=== PATIENT | female | born 1955 | race Caucasian/White ===

== ENCOUNTER 2023-05-01 11:49 | Inpatient (IN) ==
[2023-05-01] MEDS ORDERED: Lactated Ringers 1000 ml BAG 1,000 ML IV ONE ×2 (13:56→15:41)
[2023-05-01] MEDS ORDERED: Ondansetron 4 mg VIAL 2 MG/ML 2 ml VIAL IV ONE (14:04)
[2023-05-01 14:57] LABS: ABS Basophils 0.1 10^3/uL (0.0-0.1); ABS Eosinophils 0.2 10^3/uL (0.0-0.5); ABS Lymphocytes 1.8 10^3/uL (1.0-4.8); ABS Monocytes 1.3 10^3/uL (0.0-0.9); ABS Neutrophils 8.1 10^3/uL (1.5-7.6); ABS Nucleated RBC 0.02 10^3/ul; Eosinophil % 1.4 %; Hematocrit 35.6 % (35-45); Hemoglobin 11.9 g/dL (11.5-14.3); Lymphocyte % 15.8 %; Mean Corpuscular Hemoglobin 28.3 pg (27-33); Mean Corpuscular Hgb Conc 33.5 g/dL (31-36); Mean Corpuscular Volume 84.6 fL (80-97); Mean Platelet Volume 8.6 fL (7.5-11.2); Nucleated Red Blood Cells % 0.1 %/100WBC (0.0-0.8); Platelet Count 305 10^3/uL (150-450); Red Blood Count 4.21 10^6/uL (3.63-4.92); Red Cell Distribution Width 15.3 % (12-17); White Blood Count 11.5 10^3/uL (3.8-11.8)
[2023-05-01 15:18] LABS: Albumin 3.5 g/dL (3.2-5.2); Albumin/Globulin Ratio 0.8 (1-3); Calcium 9.4 mg/dL (8.6-10.3); Creatinine, Serum 2.54 mg/dL (0.51-0.95); Globulin 4.5 g/dL (2-4); Potassium 3.8 mmol/L (3.5-5.0); Total Bilirubin 0.7 mg/dL (0.2-1.0); eGFR CKD-EPI 20.4 (>60)
[2023-05-01 17:23] LABS: INR 1.28 (0.83-1.13)
[2023-05-01 17:40] LABS: Albumin 3.1 g/dL (3.2-5.2); Albumin/Globulin Ratio 0.8 (1-3); Calcium 8.6 mg/dL (8.6-10.3); Creatinine, Serum 2.4 mg/dL (0.51-0.95); Globulin 3.8 g/dL (2-4); Potassium 3.7 mmol/L (3.5-5.0); Total Bilirubin 0.6 mg/dL (0.2-1.0); Total Protein 6.9 g/dL (6.4-8.9); eGFR CKD-EPI 21.9 (>60)
[2023-05-01 18:36] LABS: Hepatitis B Surface Antigen Nonreactive (Nonreactive)
[2023-05-01 18:44] LABS: Urine Appearance Cloudy; Urine Bilirubin Negative (Negative); Urine Blood 1+ (Negative); Urine Color Yellow; Urine Glucose Negative (Negative); Urine Ketones Negative (Negative); Urine Nitrite Negative (Negative); Urine Protein Negative (Negative); Urine Specific Gravity 1.008 (1.002-1.030); Urine Urobilinogen Negative (Negative)
[2023-05-01 18:53] LABS: Hepatitis C Antibody Negative (Negative)
[2023-05-01 18:59] LABS: Urine Bacteria 3+ (Absent); Urine Red Blood Cell 1+(3-5/hpf) (Absent); Urine Squamous Epithelial Cell Present (Absent); Urine White Blood Cell 3+(>20/hpf) (Absent)
[2023-05-01 20:35] LABS: Hepatitis B Surface Ab Indeterminate (Immune)
[2023-05-01 21:39] LABS: HDL Cholesterol 10.7 mg/dL; Magnesium 1.8 mg/dL (1.9-2.7)
[2023-05-01] MEDS ORDERED: Magnesium Sulfate IV 1GM/100ML 1 GM/100 ML BAG IV ONE (22:16)
[2023-05-01] MEDS ORDERED: Potassium Chlor 20 meq TAB.ER PO ONE (22:16)
[2023-05-01 22:48] LABS: TSH Ultra Thyroid Stim Horm 3.86 mcIU/mL (0.34-5.60)
[2023-05-01] MEDS ORDERED: Ondansetron 4 mg VIAL 2 MG/ML 2 ml VIAL IV PRN (23:21)
[2023-05-01 23:42] LABS: C Reactive Protein 93.86 mg/L (<8.01)
[2023-05-01] MEDS: Enoxaparin 40 MG/0.4 ML SYR SUBCUT SCH (23:55)
[2023-05-02 02:36] LABS: Hepatitis A Ab IgM Negative (Negative)
[2023-05-02] MEDS ORDERED: Dextrose 50% Syringe 50 ml 25 GM/50 ML SYRINGE IV PUSH PRN (03:11)
[2023-05-02 06:51] LABS: Albumin 3.2 g/dL (3.2-5.2); Albumin/Globulin Ratio 0.8 (1-3); Calcium 8.8 mg/dL (8.6-10.3); Creatinine, Serum 2.54 mg/dL (0.51-0.95); Globulin 3.9 g/dL (2-4); Potassium 3.9 mmol/L (3.5-5.0); Total Bilirubin 0.5 mg/dL (0.2-1.0); Total Protein 7.1 g/dL (6.4-8.9); eGFR CKD-EPI 20.4 (>60)
[2023-05-02] MEDS: Aspirin EC 81 mg TAB.EC (enteric coated) PO SCH (09:33)
[2023-05-02] MEDS: Insulin GLARGINE 100 un/ml 10 ml VIAL SUBCUT SCH (09:34)
[2023-05-02] MEDS ORDERED: NS 0.9% 1000 ml BAG 1,000 ML IV SCH (17:15)
[2023-05-02] MEDS: Enoxaparin 40 MG/0.4 ML SYR SUBCUT SCH (23:33)
[2023-05-03 08:08] LABS: ABS Basophils 0.1 10^3/uL (0.0-0.1); ABS Eosinophils 0.2 10^3/uL (0.0-0.5); ABS Lymphocytes 1.6 10^3/uL (1.0-4.8); ABS Monocytes 0.9 10^3/uL (0.0-0.9); ABS Neutrophils 6.3 10^3/uL (1.5-7.6); ABS Nucleated RBC 0.02 10^3/ul; Eosinophil % 2.7 %; Hemoglobin 11.7 g/dL (11.5-14.3); Lymphocyte % 17.6 %; Mean Corpuscular Hemoglobin 28.2 pg (27-33); Mean Corpuscular Hgb Conc 32.6 g/dL (31-36); Mean Corpuscular Volume 86.4 fL (80-97); Mean Platelet Volume 8.5 fL (7.5-11.2); Nucleated Red Blood Cells % 0.2 %/100WBC (0.0-0.8); Platelet Count 257 10^3/uL (150-450); Red Blood Count 4.17 10^6/uL (3.63-4.92); Red Cell Distribution Width 15.7 % (12-17); White Blood Count 9.2 10^3/uL (3.8-11.8)
[2023-05-03] MEDS: Isosorbide Mononit ER 60mg TAB PO SCH (08:08)
[2023-05-03] MEDS: Aspirin EC 81 mg TAB.EC (enteric coated) PO SCH (08:08)
[2023-05-03] MEDS: Insulin GLARGINE 100 un/ml 10 ml VIAL SUBCUT SCH (08:12)
[2023-05-03 08:53] LABS: Albumin 3.3 g/dL (3.2-5.2); Albumin/Globulin Ratio 0.8 (1-3); Calcium 8.9 mg/dL (8.6-10.3); Creatinine, Serum 1.9 mg/dL (0.51-0.95); Potassium 4.4 mmol/L (3.5-5.0); Total Bilirubin 0.7 mg/dL (0.2-1.0); Total Protein 7.3 g/dL (6.4-8.9); eGFR CKD-EPI 28.9 (>60)
[2023-05-03] MEDS ORDERED: Ondansetron ODT 4 mg TAB 4 MG TAB SL PRN (11:03)
[2023-05-03] MEDS ORDERED: Calcium Carb (TUMS) 500 mg CHEW TAB PO PRN (11:03)
[2023-05-03 12:07] LABS: Urine Appearance Cloudy; Urine Bilirubin Negative (Negative); Urine Blood 1+ (Negative); Urine Color Yellow; Urine Glucose Negative (Negative); Urine Ketones Negative (Negative); Urine Nitrite Negative (Negative); Urine Protein 1+(30 mg/dL) (Negative); Urine Urobilinogen Negative (Negative)
[2023-05-03 13:08] LABS: Urine Bacteria 1+ (Absent); Urine Red Blood Cell Trace(0-2/hpf) (Absent); Urine Squamous Epithelial Cell Present (Absent); Urine White Blood Cell 3+(>20/hpf) (Absent)
[2023-05-03] MEDS: Enoxaparin 40 MG/0.4 ML SYR SUBCUT SCH (23:18)
[2023-05-04 06:36] LABS: ABS Basophils 0.1 10^3/uL (0.0-0.1); ABS Eosinophils 0.3 10^3/uL (0.0-0.5); ABS Neutrophils 7.4 10^3/uL (1.5-7.6); Eosinophil % 2.4 %; Hematocrit 35.7 % (35-45); Hemoglobin 11.8 g/dL (11.5-14.3); Lymphocyte % 18.6 %; Mean Corpuscular Hemoglobin 28.3 pg (27-33); Mean Corpuscular Hgb Conc 33.2 g/dL (31-36); Mean Corpuscular Volume 85.3 fL (80-97); Mean Platelet Volume 7.9 fL (7.5-11.2); Platelet Count 292 10^3/uL (150-450); Red Blood Count 4.18 10^6/uL (3.63-4.92); Red Cell Distribution Width 15.2 % (12-17); White Blood Count 10.7 10^3/uL (3.8-11.8)
[2023-05-04 07:28] LABS: Albumin 3.3 g/dL (3.2-5.2); Albumin/Globulin Ratio 0.8 (1-3); Calcium 8.9 mg/dL (8.6-10.3); Creatinine, Serum 1.64 mg/dL (0.51-0.95); Globulin 4.2 g/dL (2-4); Magnesium 1.5 mg/dL (1.9-2.7); Potassium 3.9 mmol/L (3.5-5.0); Total Bilirubin 0.6 mg/dL (0.2-1.0); Total Protein 7.5 g/dL (6.4-8.9); eGFR CKD-EPI 34.5 (>60)
[2023-05-04] MEDS ORDERED: Magnesium Sulfate 2 gm BAG 2 GM/50 ML BAG IVPB ONE (07:29)
[2023-05-04] MEDS ORDERED: Potassium Chlor 20 meq TAB.ER PO ONE (07:29)
[2023-05-04] MEDS: Isosorbide Mononit ER 60mg TAB PO SCH (08:40)
[2023-05-04] MEDS: Aspirin EC 81 mg TAB.EC (enteric coated) PO SCH (08:40)
[2023-05-04] MEDS: Insulin GLARGINE 100 un/ml 10 ml VIAL SUBCUT SCH (08:41)
[2023-05-04 11:58] LABS: Cytomegalovirus IgG Antibody Positive (Negative)
[2023-05-04 14:20] VITALS: BP 99/63
[2023-05-04 19:32] LABS: Mitochondria M2 Antibody <0.1 U
[2023-05-04 21:22] LABS: Anaplasma phagocytophilum Negative (Negative); B. miyamotoi PCR, B Negative (Negative); Babesia divergens/MO-1 Negative (Negative); Babesia ducani Negative (Negative); Ehrlichia chaffeensis Negative (Negative); Ehrlichia ewingii/canis Negative (Negative); Ehrlichia muris eauclairensis Negative (Negative)
[2023-05-05 13:21] LABS: EBV Capsid Ag IgG Ab Positive (Negative); EBV Capsid Ag IgM Ab Positive (Negative); Epstein-Barr Nuclear Antigen Positive (Negative)
[2023-05-06 15:00] LABS: IgG Immunoblot Positive (Negative); IgM Immunoblot Negative (Negative)
== END 2023-05-04 16:15 | disposition home or self-care (01) | DRG 442 ==
LOC: ED 11:49 → SUATTDRO 20:03 → EDHOLD 20:03 → MED 05-02 01:09
PROVIDERS: ADMIT Internal Medicine; ATTEND Internal Medicine